=== PATIENT | male | born 1980 | race Caucasian/White ===

== ENCOUNTER 2024-04-03 01:19 | Observation (INO) | payer OTHER, SELFPAY ==
[2024-04-02 22:33] VITALS: BP 162/90
[2024-04-02 22:42] VITALS: BP 160/94
--- NOTE | 2024-04-02 22:53 | ED.GENMED ---
History of Present Illness
General
Chief Complaint: Chest Pain
Source: patient
Exam Limitations: none
Time Seen by Provider: 04/02/24 22:38
Travel History
Have you had any contact with someone who has COVID-19?: No
Do you have any symptoms of coronavirus? Fever > 100 degrees, chills, cough, shortness of breath, sore throat, loss of taste or smell, muscle aches, or headache?: No
History of Present Illness
History of Present Illness:
This is a 43 year old male that comes in with c/o chest tightness. States that he was sitting and his watch told him that there was an abnormal Rhythm. States that he had chest tightness and this is similar to when he needed his stent. States that
his ECG and Troponin were all normal before. States that he felt like it was heart burn and that he had a taste of blood in his mouth. States that the only way they found out that he needed a stent was with an echo stress test. States that he was
nauseated with the tightness and lightheaded. States that his pain is a 3-4/10 in the center of his chest. Denies any fevr, chills, SOB, abd pain, vomiting, diarrhea, headache, urinary burning.
Past History
Past History
ED Past Medical History: CAD, GERD, HTN, Hypercholesterolemia, Psychiatric (Anxiety, Bipolar) and Other (Sleep apnea uses CPAP,)
ED Past Surgical History: Appendectomy, Cardiac (STENT LAD), Cholecystectomy, Orthopedic (Hip labrum tear ) and Other (Fundoplication)
Social History
Tobacco: Non-smoker
Alcohol: None
Drug: None
Personal: Other (Common law marrage)
Living: with family
Review of Systems
Review of Systems
All Other Systems: ROS reviewed and negative except as documented in HPI and ROS
Constitutional: Reports no symptoms; Denies fever or chills
EENT: Reports no symptoms
Respiratory: Denies cough or trouble breathing
Cardiac: Reports chest pain
ABD/GI: Reports nausea; Denies abdominal pain, vomiting or diarrhea
: Reports no symptoms; Denies dysuria, frequency or urgency
Musculoskeletal: Reports no symptoms
Skin: Reports no symptoms
Neurological: Reports other (Lightheaded); Denies dizzy or headache
Psychiatric: Reports no symptoms
Phy Exam
General Physical Exam
General Presentation: well appearing and no apparent distress
General age: appears stated age
General Skin: warm and dry
General Habitus: normal
General Mental: alert
General Hydration: appears well hydrated
ENT Exam
ENT Exam: TM's normal, pharynx normal and neck supple
Eye Exam
Eye Exam: EOMI
Cardiovascular Exam
Cardiovascular Exam: regular rate/rhythm, no edema, no murmur and normal peripheral pulses
Pulmonary Exam
Pulmonary Exam: lungs clear, no respiratory distress, no rales, chest non tender, no crackles, no rhonchi, no wheezing and no cough
Gastrointestinal Exam
Gastrointestinal Exam: normal bowel sounds, non tender, soft, no organomegaly, no pulsatile mass and non distended
Musculoskeletal Exam
Musculoskeletal Exam: full ROM and no edema
Skin Exam
Skin Exam: normal color, warm/dry, no rash, no petechia, cyanosis and diaphoresis
Psychiatric Exam
Psychiatric Exam: normal mood/affect
Scores
Heart Score for Chest Pain Patients
STEMI patient?: No
History: Moderately Suspicious
ECG: Normal
Age: </= 45 years
Risk Factors: >/= 3 Risk Factors or History of CAD
Troponin: </= Normal Limit
Heart Score for Chest Pain Patients: 3
Heart Score Risk: 2.5% MACE over next 6 weeks
Course
Orders/Labs/Results
Orders:
Orders
04/02/24 22:37
Electrocardiogram (*1) Urgent
Reason for Study: Chest Pain
EKG- Treatment ONCE
04/02/24 22:47
Nitroglycerin Sublingual [Nitrostat (Sublingual)] 0.4 mg SL NOW STA
CR Chest - 2 Views Urgent
Comment:
Reason For Exam: cHEST PAIN
04/02/24 22:52
CMP [Comprehensive Metabolic Panel] Urgent
Complete Blood Count/With Diff Urgent
Troponin I Urgent
04/02/24 23:52
EKG- Treatment ONCE
04/03/24 00:48
Admit/Transfer Patient As Directed
Co-Sign Provider:
Level of Care: Observation services
Assign to:: Telemetry
Physician / Group: yiy
Diagnosis: CP
Reason for Telemetry: Chest Pain syndromes
Date to Stop Telemetry: 04/05/24
Time to Stop Telemetry: 11:00
04/03/24 00:50
Code Status As Directed
Resuscitation Status: Full Code
04/03/24 00:58
HydrALAZINE [Apresoline] 5 mg IV Q4HPRN PRN
04/03/24 01:13
Troponin I Urgent
04/03/24 01:50
Electrocardiogram (*1) Urgent
Reason for Study: Chest Pain
Other Reason for Exam: Repeat with Troponin
04/03/24 01:59
Electrocardiogram (*1) Q6H
Reason for Study: Chest Pain
Comment: at admission and Q3H for total of 3, to be done with each troponin
Troponin I Q3H
Comment: at admit & Q3H for 3 total including ED draws, obtain ECG with each level
04/03/24 01:59
CARDIOLOGY CONSULT Routine
Consulting Provider: Norbert Rojas
Was physician already notified: No
Reason for consult: CP, HX CAD with stented LAD, HLD, HTN
Consult Notification Routine
Specialty to Notify: Cardiology
Glycohemoglobin (HgbA1c) Routine
Activity As Directed
Activity Level: With Assistance
INT (Intravenous Needle Therapy) As Directed
Comment: maintain peripheral IV access
Intake/ Output As Directed
Frequency: Per unit guidelines
Vital Signs As Directed
Frequency: q4h
Weight As Directed
Frequency: Daily
Cpap [RESP] Routine
Patient to use own unit?: No
Set Pressure (cm H2O): 12
Instructions: HS
DX Deep Vein Thrombosis Video Routine
04/03/24 02:00
Flush (0.9% Sodium Chloride) [Flush (Nss)] See Dose Instructions IV PER PROTOCOL
04/03/24 04:59
Troponin I Q3H
Comment: at admit & Q3H for 3 total including ED draws, obtain ECG with each level
04/03/24 Breakfast
Cholesterol Lowering
Cholesterol Lowering: Sodium, 2 Gram
Cardiovascular Evaluation IN AM
Complete Blood Count/No Diff IN AM
Comprehensive Metabolic Panel IN AM
[place] IN AM
04/03/24 07:59
Electrocardiogram (*1) Q6H
Reason for Study: Chest Pain
Comment: at admission and Q3H for total of 3, to be done with each troponin
Troponin I Q3H
Comment: at admit & Q3H for 3 total including ED draws, obtain ECG with each level
04/03/24 08:00
Aspirin Low Dose EC [Aspir Low (Enteric Coated)] 81 mg PO DAILY
ISOSORBIDE MONOnitrate ER [Imdur (Extended Release)] 60 mg PO DAILY
Losartan [Cozaar] 50 mg PO BID
Metoprolol Xl [Toprol Xl] 100 mg PO DAILY
Montelukast Sodium [Singulair] 10 mg PO DAILY
fenofibrate 160 mg PO DAILY
omeprazole 40 mg PO BID
04/03/24 13:59
Electrocardiogram (*1) Q6H
Reason for Study: Chest Pain
Comment: at admission and Q3H for total of 3, to be done with each troponin
04/03/24 18:00
Atorvastatin [Lipitor] 80 mg PO QPM
Enoxaparin Sodium [Lovenox] 40 mg SC QPM
04/03/24 22:00
lithium carbonate 600 mg PO HS
04/05/24 11:00
DC Protocol for Telemetry ONCE
Abnormal Lab Results
04/02/24
22:52
RBC 4.63 L 10^6/uL
(4.70-6.10)
Hct 37.8 L %
(39.0-52.0)
Abs Immat Gran (auto) 0.1 H 10^3/uL
(0-0.05)
Immature Gran % 1.0 H %
(0-0.5)
BUN 21 H mg/dl
(9-20)
Creatinine 1.5 H mg/dL
(0.7-1.3)
Glucose 103 H mg/dl
(70-99)
ALT 78 H U/L
(0-50)
04/02/24 22:52
04/02/24 22:52
Very slight Dehydration. Glucose nonfasting. ALT elevation. Troponin <0.012
Vital Signs
Initial and Last Documented VS:
Initial Vital Signs
Temp Pulse Resp BP Pulse Ox
97.8 F 65 24 162/90 100
04/02/24 22:33 04/02/24 22:33 04/02/24 22:33 04/02/24 22:33 04/02/24 22:33
Last Documented Vital Signs
Temp Pulse Resp BP Pulse Ox
97.8 F 62 22 145/92 95
04/02/24 22:33 04/03/24 01:45 04/03/24 01:45 04/03/24 01:00 04/03/24 01:45
MDM/Problems Addressed
Differential Diagnosis Includes:
TX, CAD,
MDM/Problems Addressed:
This is a 43 year old male that comes in with c/o chest tightness. states that this is similar to when he needed a stent. states that his Troponin and ECG were all normal then also.
Will check labs, chest x-ray and give SL nitro.
Back into see patient. Patient states that his pain was gone after the nitro. Will get Second Troponin
Into see patient. Explained that his troponin was normal along with the ECG. However, with patient history and pain relieved by Nitro, will admit patient for further evaluation. Hospitalist notified.
Repeat ECG: rate 65, NSR, Normal axis. Normal QRS, negative for ischemia. Checked by Dr Hay
Chronic conditions affecting care: CAD
Acute Exacerbation and/or Progression of Chronic Illness: CAD
*Radiology
Radiology exam reviewed: preliminary read by ED provider (Chest- negative for active disease)
*Pulse Oximetry
Patient hypoxic: no
*EKG
Interpreted by ED Provider?: Yes
Heart Rate: 70
Rate: normal
Rhythm: sinus
[place]: normal axis
Interval: normal interval
QRS Pattern: normal QRS
Ischemia: no ischemia
*[facility] Interpretation
Rate: normal
Heart Rate: 70
Rhythm: sinus
*Critical Care Note
Total Time (30-74mins, 75-104mins- exclusive of procedures): Not Applicable
ED Attending Note
-
Portions of this chart may have been created with voice recognition software.� Occasional wrong word or��sound alike� substitutions may have occurred due to the inherent limitations of voice recognition software.
Discharge Plan
Departure
Patient Disposition: Admit
Date of Disposition: 04/03/24
Time of Disposition: 00:28
Admit to: Telemetry
Presentation/result/management discussed w/ accepting MD/DO: Hospitalist
Patient with high blood pressure during this ER visit?: Yes
Condition: Good
Covid-19: Not Applicable
Discharge Problem:
Chest pain
Interventions
Interventions:
*Risk Screen - Suicide Last Done: 04/03/24 00:37
*General Assessment Last Done: 04/03/24 00:37
*Neglect/Abuse Screening Last Done: 04/03/24 00:37
ED- Fall Risk Assessment Last Done: 04/03/24 00:37
*ED COVID-19 Vaccine History Last Done: 04/03/24 00:37
ED- Cardiac Assessment Last Done: 04/02/24 23:11
[2024-04-02] MEDS: NITROSTAT (SUBLINGUAL) 0.400000000000000022 MG SL (22:56)
[2024-04-02 23:00] VITALS: BP 140/80
[2024-04-02 23:02] LABS: % Basophils 0.4 % (0-2); % Eosinophils 2.5 % (0-6); % Lymphocytes 38.6 % (20.5-51.1); % Monocytes 7.4 % (1.7-9.3); % Neutrophils 50.1 % (42.2-75.2); Absolute Eosinophils 0.2 10^3/uL (0-0.7); Absolute Immature Granulocytes 0.1 10^3/uL (0-0.05); Absolute Lymphocytes 3.1 10^3/uL (1.2-3.4); Absolute Monocytes 0.6 10^3/uL (0.1-0.6); Absolute Neutrophils 4.1 10^3/uL (1.4-6.5); Hematocrit 37.8 % (39.0-52.0); Hemoglobin 13.4 g/dL (13.0-18.0); Mean Corp Hgb Conc. 35.4 g/dL (33.0-37.0); Mean Corpuscular Hgb 28.9 pg (27.0-31.0); Mean Corpuscular Volume 81.6 fL (80.0-94.0); Mean Platelet Volume 9.6 fL (7.4-10.4); Nucleated Red Blood Cells % 0 % (-); Platelet Count 214 10^3/uL (130-400); Red Blood Cell Count 4.63 10^6/uL (4.70-6.10); Red Cell Dist. Width 12.3 % (11.5-14.5); White Blood Cell Count 8.1 10^3/uL (4.8-10.8)
[2024-04-02 23:16] LABS: ALT (SGPT) 78 U/L (0-50); AST (SGOT) 44 U/L (17-59); Albumin 4.4 g/dl (3.5-5.0); Alkaline Phosphatase 62 U/L (38-126); Blood Urea Nitrogen 21 mg/dl (9-20); Calcium 10.2 mg/dl (8.4-10.2); Carbon Dioxide 27 mmol/L (22-30); Chloride 106 mmol/L (98-107); Glucose 103 mg/dl (70-99); Potassium 4.2 mmol/L (3.5-5.1); Sodium 141 mmol/L (135-145); Total Bilirubin 0.8 mg/dl (0.2-1.3); Total Protein 6.7 g/dl (6.3-8.2); eGFR 59.61
[2024-04-02 23:25] LABS: Troponin I < 0.012 ng/ml
[2024-04-03] VITALS: BP 144/87
--- NOTE | 2024-04-03 00:42 | HPS.HSE ---
Family Physician
-
Family Physician: GOOD Boggs
Chief Complaint
-
tightness of chest at rest
History of Present Illness
43M HX CAD with LAD stent, MYA on CPAP HS, Anxiety, Bipolar dz seen at ER for evalaution of Chest tightness while sitting. Reports abnormal rythym per pple watch at that time.
Associated nausea and Ran.
Ran improved after SL NTG.
NEG first TPNI.
Nl EKG.
Hypertensive on arrival
Medical History
Past Medical History
Past Medical History: Reports Other (CAD, GERD, HTN, Hypercholesterolemia, Psychiatric (Anxiety, Bipolar) and Other (Sleep apnea uses CPAP,))
Past Surgical History: Reports Other
Additional Past Surgical History:
Appendectomy, Cardiac (STENT LAD), Cholecystectomy, Orthopedic (Hip labrum tear ) and Other (Fundoplication)
Social History
Tobacco: Non-smoker
Alcohol: None
Drug: None
Personal: Other (Common law marrage)
Family History
Family History: Not pertinent
Allergies / Home Medications
Allergies reflects when Allergies were last updated in [email or web address].
Home Medications with original date entered in [email or web address]
Allergy/Medication List:
Allergies
Allergy/AdvReac Type Severity Reaction Status Date / Time
diphenhydramine Allergy Unknown Verified 04/02/24 22:36
[From Benadryl]
Home Medications
aspirin 81 mg tablet 81 mg PO DAILY 04/02/24
atorvastatin 80 mg tablet 80 mg PO QPM 04/02/24
fenofibrate 160 mg tablet 160 mg PO DAILY 04/02/24
isosorbide mononitrate 60 mg tablet,extended release 24 hr 60 mg PO DAILY 04/02/24
lithium carbonate 600 mg capsule 600 mg PO HS 04/02/24
losartan 50 mg tablet 50 mg PO BID 04/02/24
metoprolol succinate 100 mg tablet,extended release 24 hr 100 mg PO DAILY 04/02/24
montelukast 10 mg tablet 10 mg PO DAILY 04/02/24
omeprazole 40 mg capsule,delayed release 40 mg PO BID 04/02/24
Review of Systems
-
Constitutional: Reports No Symptoms
EENT: Reports No Symptoms
Respiratory: Reports No Symptoms
Cardiac: Reports Chest Pain; Denies Diaphoresis or Palpitations
Abdomen/GI: Reports No Symptoms
: Reports No Symptoms
Musculoskeletal: Reports No Symptoms
Skin: Reports No Symptoms
Neurological: Reports No Symptoms
Endocrine: Reports No Symptoms
Hematologic/Lymphatic: Reports No Symptoms
Psych: Reports No Symptoms
Physical Exam
Vital Signs
Vital Signs
Temp Pulse Resp BP Pulse Ox
97.8 F 69 23 144/87 95
04/02/24 22:33 04/03/24 00:30 04/03/24 00:30 04/03/24 00:00 04/03/24 00:30
Physical Exam
General: Well Developed, Well Nourished, Comfortable and Conversant
HEENT: NormoCephalic, Anicteric and Moist mucous membranes
Respiratory: Clear
Cardiac: S1/S2 and Regular Rhythm; No Tachycardia or Murmur
Breast: Deferred by me
GI: Soft, Non Tender and Non Distended
Rectal: Deferred by Provider
Genito-urinary: Deferred by me
Musculoskeletal: No Cyanosis and No Edema
Skin: Warm and Dry; No Jaundice
Neuro: AO x 3, No Motor Deficits and Nonfocal/grossly intact
Psych: Anxious
Laboratory Results
-
04/02/24 22:52
04/02/24 22:52
Laboratory Results
Total Bilirubin 0.8 mg/dl (0.2-1.3) 04/02/24 22:52
AST 44 U/L (17-59) 04/02/24 22:52
ALT 78 U/L (0-50) H 04/02/24 22:52
Alkaline Phosphatase 62 U/L (38-126) 04/02/24 22:52
Troponin I < 0.012 ng/ml 04/02/24 22:52
Data Reviewed
-
Medical Tests (Nuc Med, Echo, EKG etc): Report Reviewed by me
Lab Data: Labs Reviewed by me
Impression/Plan
-
Reviewed VS: HR 65 on BB BP 160/90 RR24
Data
nl CBC
Cr 1.5
e GFR 59
NEG No.1 TPNI
Pending No.2 TPNI @0150H
ALT 82
EKG:
NORMAL SINUS RHYTHM
NORMAL ECG
NO PREVIOUS ECGS AVAILABLE
My read on CXR; unremarkable
No prior admission to
ASSESSMENT & PLAN
Chest tightness at rest: So far NEG TPNI, nl EKG
Zero chest tightness s/p SL NTG
Reports HX CAD with stented LAD on ASA
HLD on Atorvastatin and fenofibrate
Suboptimal BP control for essential HTN
- cont ASA
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
- cont IMN and Metoprolol succinate
- cont Losartan , add IV Hydralazine PRN for SBP > 165, DBP > 110
- Trend TPNI
- CBC card consult
Renal insufficiency: reports as known to patient and seems chronic
- cont Losartan
- Trend Cr in AM
MYA on CPAP HS - cont.
HX Anxiety, BPDz on [place]
- check Li level in AM ( missed HS dose)
- cont all OP Meds
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
DVT Px: LMWH
Code: Full
Obs TLM
[2024-04-03 01:00] VITALS: BP 145/92
[2024-04-03 01:52] LABS: Troponin I < 0.012 ng/ml
[2024-04-03 02:19] VITALS: BMI 31.1
[2024-04-03 02:48] VITALS: BP 145/86
[2024-04-03 03:10] VITALS: PULSE 60
--- NOTE | 2024-04-03 03:12 | PTCARENOTE ---
Receive pt from ER. Pt alert oriented X3, calm in no distress. Pt assist X1 to his room. Pt oriented to the room, call chavez within reach. Pt denies chest pain, dizziness, nausea, or SOB. Pt on NSR on telemonitor. VSS (T=98.8, HR=60, RR=18,
JP=974/86, SpO2=98% on RA). Resp notified for pt's CPAP. Will continue to monitor the pt.
[2024-04-03 07:04] LABS: Hematocrit 37.6 % (39.0-52.0); Mean Corp Hgb Conc. 34.6 g/dL (33.0-37.0); Mean Corpuscular Hgb 28.6 pg (27.0-31.0); Mean Corpuscular Volume 82.6 fL (80.0-94.0); Mean Platelet Volume 10.3 fL (7.4-10.4); Platelet Count 197 10^3/uL (130-400); Red Blood Cell Count 4.55 10^6/uL (4.70-6.10); Red Cell Dist. Width 12.1 % (11.5-14.5); White Blood Cell Count 7.8 10^3/uL (4.8-10.8)
[2024-04-03 07:25] LABS: Troponin I < 0.012 ng/ml
[2024-04-03 07:26] LABS: ALT (SGPT) 68 U/L (0-50); AST (SGOT) 39 U/L (17-59); Alkaline Phosphatase 55 U/L (38-126); Blood Urea Nitrogen 21 mg/dl (9-20); Calcium 9.7 mg/dl (8.4-10.2); Carbon Dioxide 25 mmol/L (22-30); Chloride 108 mmol/L (98-107); Estimated Creatinine Clearance 91 ml/min; Glucose 94 mg/dl (70-99); HDL Cholesterol 31 mg/dl; LDL Cholesterol, Calculated 55 mg/dl; Lithium 0.3 mmol/L (0.6-1.2); Sodium 142 mmol/L (135-145); Total Bilirubin 0.8 mg/dl (0.2-1.3); Total Cholesterol 112 mg/dl (50-199); Total Protein 6.2 g/dl (6.3-8.2); Triglyceride 132 mg/dl (10-149); Very Low Density Lipoprotein 26 mg/dl (0-30); eGFR > 60.00
[2024-04-03 07:29] VITALS: BP 136/78
[2024-04-03] MEDS: TOPROL XL 100 MG PO (08:29)
[2024-04-03] MEDS: ASPIR LOW (ENTERIC COATED) 81 MG PO (08:29)
[2024-04-03] MEDS: COZAAR 50 MG PO (08:29)
[2024-04-03] MEDS: PROTONIX 40 MG PO (08:29)
[2024-04-03] MEDS: SINGULAIR 10 MG PO (08:29)
[2024-04-03] MEDS: TRICOR 145 MG PO (08:29)
[2024-04-03] MEDS: IMDUR (EXTENDED RELEASE) 60 MG PO (08:30)
[2024-04-03 09:08] LABS: Glycohemoglobin (HgbA1c) 5.5 % (4.0-5.6)
[2024-04-03 10:30] LABS: Troponin I < 0.012 ng/ml
[2024-04-03 11:07] VITALS: BP 117/74
--- NOTE | 2024-04-03 11:29 | W.PN.CD ---
Today's Communication / Plan
-
OK for home
F/u next week with his dynamics ax solution architect in [place] (now lives in [place] but prefers to stay with his assistant terminal manager dynamics ax solution architect)
Impression / Plan
-
Chest pain
- 2.5 hrs with normal troponin x4 over 10.5 hrs => unlikely to be from CAD
[employer] alert
- Once he got alert he checked EKG that I reviewed => NSR
CAD, prior pLAD stent
- CT Angio 09/29/2023: Patent LAD stent, 24-49% mRCA
Mixed hyperlipidemia
Bipolar/anxiety/depression
HTN
GERD
Physical Exam
Vital Signs/Labs
Vital Signs
Temp Pulse Resp BP Pulse Ox
98.4 F 68 20 136/84 97
04/03/24 07:29 04/03/24 08:29 04/03/24 07:29 04/03/24 08:29 04/03/24 08:30
04/02/24 04/03/24 04/04/24
06:59 06:59 06:59
Actual Weight 101.179 kg
04/03/24 06:12
04/03/24 06:12
Triglycerides 132 mg/dl (10-149) 04/03/24 06:12
LDL Cholesterol, Calc 55 mg/dl 04/03/24 06:12
VLDL Cholesterol, Calc 26 mg/dl (0-30) 04/03/24 06:12
HDL Cholesterol 31 mg/dl 04/03/24 06:12
LAB Results
04/02/24 04/03/24 04/03/24
22:52 01:13 01:59
Troponin I < 0.012 < 0.012 Cancelled
04/03/24 04/03/24
06:12 09:22
Troponin I < 0.012 < 0.012
Data Reviewed
-
Date of Service: April 03, 2024
--- NOTE | 2024-04-03 12:19 | W.PN.UPDATE ---
Update Note
Progress Note Update
General: Well Developed, Well Nourished, Comfortable and Conversant
HEENT: NormoCephalic, Anicteric and Moist mucous membranes
Respiratory: Clear
Cardiac: S1/S2 and Regular Rhythm; No Tachycardia or Murmur
GI: Soft, Non Tender and Non Distended
Musculoskeletal: No Cyanosis and No Edema
Skin: Warm and Dry; No Jaundice
Neuro: AO x 3, No Motor Deficits and Nonfocal/grossly intact
Psych: calm
Patient was seen and examined at bedside. 43-year-old male with history of CAD, bipolar, anxiety, depression, hypertension, GERD, hyperlipidemia came to the hospital with chest pain. Patient had negative CT angio 09/29/2023 with patent LAD, 24 to
49% mid RCA. Troponin has been negative x 4. Per patient nitro mildly help with pain. He does have history of angina. Spoke with cardiology and they are okay with patient going home. He will follow-up with his outpatient maintenance of way supervisor at [facility]
next week.
Admitted past midnight. Nonbillable note
Total time spent on discharge 36 minutes
--- NOTE | 2024-04-03 12:25 | W.DCSUMMARY ---
Discharge Summary
Discharge Data
Date of Admission: 04/03/24
Date of Discharge: 04/03/24
-
Pending Results: No
Hospital Course
43-year-old male with past medical history of CAD, bipolar, anxiety, depression, hypertension, hyper lipidemia, GERD came to the hospital with chest pain. On this hospitalization patient had troponin which were negative. His chest pain overnight
improved with nitro. He was seen by cardiology and was recommended to follow-up with his outpatient laboratory courier for further workup. He had a recent CT angio which did not show any significant CAD and September 2023. Once patient chest pain
resolved and his troponins were negative, he was then discharged home with instructions to follow-up with all his other physicians outpatient.
Discharge Plan
-
Patient Disposition: Home (Routine Discharge)
Discharge Diagnosis/Procedures: Chest pain
CAD
Diet: As tolerated
Activity: As tolerated
Driving Restrictions: As prior to admission
Bathing Restrictions: None
Activity Restrictions/Additional Instructions:
Please follow-up with your laboratory courier next week
Referrals:
GOOD Boggs [Other] - in less than 1 week
Prescriptions:
New
nitroglycerin 0.3 mg tablet, sublingual
0.3 mg sublingual Q5M PRN (Reason: chest pain) Qty: 30 0RF
Continued
lithium carbonate 600 mg Capsule
600 mg PO HS
losartan 50 mg Tablet
50 mg PO BID
omeprazole 40 mg Capsule,Delayed Release(Dr/Ec)
40 mg PO BID
atorvastatin 80 mg Tablet
80 mg PO QPM
metoprolol succinate 100 mg Tablet Extended Release 24 Hr
100 mg PO DAILY
isosorbide mononitrate 60 mg Tablet Extended Release 24 Hr
60 mg PO DAILY
montelukast 10 mg Tablet
10 mg PO DAILY
aspirin 81 mg Tablet
81 mg PO DAILY
fenofibrate 160 mg Tablet
160 mg PO DAILY
Discharge Orders:
Discharge Patient (As Directed); Ordered 04/03/24
Ordered By: Kolby Cowan
Discharge Date and Time
Discharge Date/Time: 04/03/24 13:12
Print Language: [id number]
--- NOTE | 2024-04-03 12:34 | CM ---
Addendum entered by Camryn Muir 04/03/24 13:43:
Patient prior to CM reviewing OBS form.
Original Note:
Patient seen at bedside. Patient lives with his in a split level home. Patient PCP is Dr. Boggs, and he uses the [facility] [address] in [place]. Patient plan is for discharge home with no needs. CM will review OBS form. CM
will continues to follow for discharge planning needs.
Plan; home with no needs anticipated
== END 2024-04-03 13:12 | disposition home or self-care (01) ==
LOC: 4 EAST ACU 01:19
PROVIDERS: Clinical Nurse Specialist Family Health; Emergency Medicine; ADMITTING PHYSICIAN Internal Medicine; ATTENDING PHYSICIAN Internal Medicine; CONSULT PHYSICIAN Internal Medicine Cardiovascular Disease; EMERGENCY PHYSICIAN Emergency Medicine
DX: R07.89 Other chest pain (principal); R11.0 Nausea; I25.10 Atherosclerotic heart disease of native coronary artery without angina pectoris; E78.2 Mixed hyperlipidemia; F31.9 Bipolar disorder, unspecified; I10 Essential (primary) hypertension; N28.9 Disorder of kidney and ureter, unspecified; F41.9 Anxiety disorder, unspecified; G47.33 Obstructive sleep apnea (adult) (pediatric); K21.9 Gastro-esophageal reflux disease without esophagitis; Z95.5 Presence of coronary angioplasty implant and graft; Z90.49 Acquired absence of other specified parts of digestive tract; Z88.8 Allergy status to other drugs, medicaments and biological substances; Z79.82 Long term (current) use of aspirin; Z82.49 Family history of ischemic heart disease and other diseases of the circulatory system
CPT/HCPCS: 71046; 80053; 80061; 80178; 83036; 84484; 85025; 85027; 93005; 94660; 99285; G0378